=== PATIENT | female | born 1980 | race Hispanic/Latino ===

== ENCOUNTER 2017-01-05 21:28 | Emergency (ER) | payer SELFPAY ==
[~2017-01-05] VITALS: Ht 170.2 cm; Wt 119.0 kg
[~2017-01-05 21:28] MED LIST: AMOXICILLIN500 M2 PO; AMOXICILLIN500 MG PO; AUGMENTIN500TAB PO; CIPROFLOXACN500 MG PO; IRON325 MG PO; NAPROSYN500 MG PO; ULTRAM50 M1 PO; ZOFRAN ODT8 MG PO
[2017-01-05] MEDS ORDERED: NEXIUM5 MG PO (21:37)
[2017-01-05] MEDS ORDERED: TYLENOL PM PO (21:37)
[2017-01-05] MEDS ORDERED: PERCOCET 5/325M1 TAB PO (21:49)
[2017-01-05] MEDS ORDERED: FLEXERIL PO (21:49)
[2017-01-05] MEDS ORDERED: MOTRIN800 MG PO (21:49)
[2017-01-05 22:09] VITALS: BP 136/85
== END 2017-01-05 22:19 | disposition home or self-care (01) | DRG 552 ==
LOC: ED 21:28
DX: M54.5 Low back pain (principal); R53.1 Weakness

== ENCOUNTER 2017-05-16 21:55 | Emergency (ER) | payer OTHER ==
[~2017-05-16] VITALS: Ht 170.2 cm; Wt 119.4 kg
[~2017-05-16 21:55] MED LIST changes: +FLEXERIL PO; +MOTRIN800 MG PO; +NEXIUM5 MG PO; +PERCOCET 5/325M1 TAB PO; +TYLENOL PM PO
[2017-05-16 22:58] LABS: HEMATOCRIT 36.7 % (37.0-47.0); HEMOGLOBIN 10.1 g/dl (12.0-16.0); IMMATURE GRANULOCYTES 0.3 % (0.0-1.0); MEAN CELL VOLUME 77.3 fL CALC (80.0-100.0); MEAN CORPUSCULAR HGB 21.3 pG CALC (26.0-32.0); MEAN CORPUSCULAR HGB CONC 27.5 g/L CALC (32.0-36.0); NEUT# 5.51 thou/uL (2.00-7.15); RED BLOOD COUNT 4.75 mill/uL (4.20-5.60); RED CELL DISTRI WIDTH 16.9 % (11.5-15.5)
[2017-05-16 23:20] LABS: ALBUMIN 4.4 g/dL (3.2-5.0); ALKALINE PHOSPHATASE 114 u/l (38-126); ANION GAP 16 (6-22 (CALC)); BILIRUBIN, TOTAL 0.5 mg/dL (0.0-1.4); BUN 10 mg/dL (7-17); BUN/CREATININE RATIO 14 (12-20 (CALC)); CALCIUM 9.3 mg/dL (8.4-10.2); CARBON DIOXIDE 25 mmol/l (22-30); CHLORIDE 106 mmol/l (95-108); CREATININE 0.7 mg/dL (0.5-1.0); GFR > 60 ML/MIN (>=60 (CALC)); GFR FOR AFR.AMER. > 60 ML/MIN (>=60 (CALC)); GLUCOSE 88 mg/dL (65-105); POTASSIUM 4.2 mmol/l (3.5-5.1); SGOT/AST 27 u/l (14-36); SGPT/ALT 32 u/l (9-52); SODIUM 143 mmol/l (137-146)
[2017-05-16] MEDS ORDERED: NAPROSYN500 MG PO (23:31)
[2017-05-17 00:05] VITALS: BP 152/94
== END 2017-05-17 00:05 | disposition home or self-care (01) | DRG 761 ==
LOC: ED 21:55
PROVIDERS: Emergency Medicine
DX: N94.6 Dysmenorrhea, unspecified (principal); F17.210 Nicotine dependence, cigarettes, uncomplicated; R10.30 Lower abdominal pain, unspecified; N93.9 Abnormal uterine and vaginal bleeding, unspecified

== ENCOUNTER 2017-09-09 07:55 | Emergency (ER) | payer OTHER ==
[~2017-09-09] VITALS: Ht 170.2 cm; Wt 121.4 kg
[2017-09-09 08:50] LABS: HEMATOCRIT 33.1 % (37.0-47.0); HEMOGLOBIN 9.1 g/dl (12.0-16.0); IMMATURE GRANULOCYTES 0.1 % (0.0-1.0); MEAN CELL VOLUME 75.1 fL CALC (80.0-100.0); MEAN CORPUSCULAR HGB 20.6 pG CALC (26.0-32.0); MEAN CORPUSCULAR HGB CONC 27.5 g/L CALC (32.0-36.0); RED BLOOD COUNT 4.41 mill/uL (4.20-5.60); RED CELL DISTRI WIDTH 16.4 % (11.5-15.5)
[2017-09-09 08:54] LABS: URINE BILIRUBIN - DIPSTICK NEGATIVE (NEGATIVE); URINE BLOOD DIPSTICK SMALL (NEGATIVE); URINE COLOR YELLOW; URINE GLUCOSE - DIPSTICK NEGATIVE (NEGATIVE); URINE KETONE NEGATIVE (NEGATIVE); URINE LEUK ESTERASE NEGATIVE (NEGATIVE); URINE NITRITE - DIPSTICK NEGATIVE (Negative); URINE PROTEIN - DIPSTICK NEGATIVE (NEG-TRACE); URINE SPECIFIC GRAVITY 1.025; URINE UROBILINOGEN - DIPSTICK 0.2 E.U./dL (0.2)
[2017-09-09 08:55] LABS: URINE CLARITY CLEAR
[2017-09-09 09:04] LABS: URINE SQUAMOUS EPITHELIAL CELL FEW EPI/hpf (0-FEW)
[2017-09-09 09:05] LABS: URINE RBC 0-2 RBC/hpf (0-5); URINE WBC 0-2 WBC/hpf (0-5)
[2017-09-09 09:08] LABS: ANION GAP 15 (6-22 (CALC)); BUN 9 mg/dL (7-17); BUN/CREATININE RATIO 16 (12-20 (CALC)); CARBON DIOXIDE 27 mmol/l (22-30); CHLORIDE 106 mmol/l (95-108); CREATININE 0.5 mg/dL (0.5-1.0); GFR > 60 ML/MIN (>=60 (CALC)); GFR FOR AFR.AMER. > 60 ML/MIN (>=60 (CALC)); LIPASE 58 u/l (23-300); POTASSIUM 3.9 mmol/l (3.5-5.1); SODIUM 144 mmol/l (137-146)
[2017-09-09] MEDS ORDERED: RANITIDINE 150150 MG PO (11:40)
[2017-09-09 11:56] VITALS: BP 126/70
== END 2017-09-09 12:05 | disposition home or self-care (01) | DRG 392 ==
LOC: ED 07:55
PROVIDERS: Family Medicine
DX: K29.70 Gastritis, unspecified, without bleeding (principal); R10.13 Epigastric pain

== ENCOUNTER 2017-10-02 20:10 | Emergency (ER) | payer OTHER ==
[~2017-10-02] VITALS: Ht 170.2 cm; Wt 118.2 kg
[~2017-10-02 20:10] MED LIST changes: +RANITIDINE 150150 MG PO
[2017-10-02 21:40] VITALS: BP 137/93
== END 2017-10-02 21:40 | disposition home or self-care (01) | DRG 605 ==
LOC: ED 20:10
PROC: 0HQLXZZ Repair Left Lower Leg Skin, External Approach (ICD-10-PCS; principal; 2017-10-02)
DX: S81.012A Laceration without foreign body, left knee, initial encounter (principal); F17.210 Nicotine dependence, cigarettes, uncomplicated; W19.XXXA Unspecified fall, initial encounter; Y92.512 Supermarket, store or market as the place of occurrence of the external cause

== ENCOUNTER 2018-01-07 07:13 | Emergency (ER) | payer OTHER ==
[~2018-01-07] VITALS: Ht 170.2 cm; Wt 105.0 kg
[2018-01-07] MEDS ORDERED: TESSALON PER100 MG PO (07:32)
[2018-01-07] MEDS ORDERED: ZITHROMAX250 MG PO (07:32)
[2018-01-07] MEDS ORDERED: CORTISPORIN OTI10 M2 AU (07:32)
[2018-01-07] MEDS ORDERED: TORADOL PO (07:32)
[2018-01-07 07:36] VITALS: BP 144/68
== END 2018-01-07 07:41 | disposition home or self-care (01) | DRG 203 ==
LOC: ED 07:13
DX: J40 Bronchitis, not specified as acute or chronic (principal); R05 Cough; R09.81 Nasal congestion; H92.03 Otalgia, bilateral; F17.210 Nicotine dependence, cigarettes, uncomplicated

== ENCOUNTER 2018-06-29 19:11 | Emergency (ER) | payer OTHER ==
[~2018-06-29] VITALS: Ht 170.2 cm; Wt 109.0 kg
[~2018-06-29 19:11] MED LIST changes: +CORTISPORIN OTI10 M2 AU; +IBUPROFEN600 MG PO; +TESSALON PER100 MG PO; +TORADOL PO; +VOLTAREN - GENE75 MG PO; +ZITHROMAX250 MG PO
[2018-06-29 21:30] VITALS: BP 128/70
== END 2018-06-29 21:30 | disposition home or self-care (01) ==
LOC: ED 19:11
DX: J02.9 Acute pharyngitis, unspecified (principal); R50.9 Fever, unspecified; R05 Cough; F17.200 Nicotine dependence, unspecified, uncomplicated; J45.909 Unspecified asthma, uncomplicated

== ENCOUNTER 2018-07-01 18:31 | Emergency (ER) | payer OTHER ==
[~2018-07-01] VITALS: Ht 170.2 cm; Wt 110.0 kg
[2018-07-01] MEDS ORDERED: AMOXICILLIN500 MG PO (19:12)
[2018-07-01] MEDS ORDERED: PERCOCET 5/325M1 TAB PO (19:12)
[2018-07-01] MEDS ORDERED: CORTISPORIN OTI10 ML AD (19:12)
[2018-07-01 19:15] VITALS: BP 167/88
== END 2018-07-01 19:23 | disposition home or self-care (01) ==
LOC: ED 18:31
DX: H66.93 Otitis media, unspecified, bilateral (principal); H60.93 Unspecified otitis externa, bilateral; H92.03 Otalgia, bilateral; J06.9 Acute upper respiratory infection, unspecified; F17.210 Nicotine dependence, cigarettes, uncomplicated

== ENCOUNTER 2018-08-22 07:18 | Emergency (ER) | payer OTHER ==
[~2018-08-22] VITALS: Ht 170.2 cm; Wt 105.0 kg
[~2018-08-22 07:18] MED LIST changes: +CORTISPORIN OTI10 ML AD
[2018-08-22] MEDS ORDERED: [UNRECOGNIZED DRUG - OTHER] NAB (07:40)
[2018-08-22] MEDS ORDERED: OMEPRAZOLE20 MG PO (07:40)
[2018-08-22] MEDS ORDERED: FLONASE AL50 MCG/ACT NAB (08:15)
[2018-08-22] MEDS ORDERED: IPRATROPIUM BR0.03 % NAB (08:15)
[2018-08-22] MEDS ORDERED: DOXYCYC MONO100 M1 PO (08:34)
[2018-08-22 08:49] VITALS: BP 112/64
== END 2018-08-22 09:12 | disposition home or self-care (01) ==
LOC: ED 07:18
DX: J06.9 Acute upper respiratory infection, unspecified (principal); J45.909 Unspecified asthma, uncomplicated; R05 Cough; J02.9 Acute pharyngitis, unspecified; R09.89 Other specified symptoms and signs involving the circulatory and respiratory systems; H92.01 Otalgia, right ear

== ENCOUNTER 2018-09-06 18:21 | Emergency (ER) | payer OTHER ==
[~2018-09-06] VITALS: Ht 170.2 cm; Wt 130.8 kg
[~2018-09-06 18:21] MED LIST changes: +DOXYCYC MONO100 M1 PO; +FLONASE AL50 MCG/ACT NAB; +IPRATROPIUM BR0.03 % NAB; +OMEPRAZOLE20 MG PO; +[UNRECOGNIZED DRUG - OTHER] NAB
[2018-09-06] MEDS ORDERED: MEDDOSEPAK PO (20:31)
[2018-09-06] MEDS ORDERED: ROBITUSSIN AC10 ML PO (20:31)
[2018-09-06 20:52] VITALS: BP 107/73
== END 2018-09-06 20:52 | disposition home or self-care (01) ==
LOC: ED 18:21
DX: J06.9 Acute upper respiratory infection, unspecified (principal); J45.909 Unspecified asthma, uncomplicated; R05 Cough

== ENCOUNTER 2019-07-24 07:00 | Emergency (ER) | payer OTHER ==
[~2019-07-24 07:00] MED LIST changes: +MEDDOSEPAK PO; +ROBITUSSIN AC10 ML PO
[2019-07-24] MEDS ORDERED: DOXYCYC MONO100 M2 PO (07:41)
[2019-07-24] MEDS ORDERED: CHERATUSSIN PO (07:41)
[2019-07-24] MEDS ORDERED: PROAIR HFA108 MCG/AC PO (07:42)
[2019-07-24 08:15] VITALS: BP 161/81
[2020-03-25] MEDS ORDERED: GABAPENTIN400 M2 PO (15:01)
[2020-03-25] MEDS ORDERED: METHOCARBAMOL500 MG PO (15:02)
[2020-03-25] MEDS ORDERED: PROTONIX40 M2 PO (15:02)
[2020-03-25] MEDS ORDERED: HYDROCODONE/ACE1 TAB PO ×2 (15:54→15:55)
[2020-03-25] MEDS ORDERED: PHENTERMINE37.5 MG PO (16:07)
== END 2019-07-24 08:15 | disposition home or self-care (01) ==
LOC: ED 07:00
DX: J06.9 Acute upper respiratory infection, unspecified (principal)

== ENCOUNTER 2020-05-05 04:41 | Observation (INO) | payer OTHER ==
[~2020-05-05] VITALS: Ht 152.4 cm; Wt 113.0 kg
[2020-05-05] VITALS (10 sets, daily range): BP systolic 97–148; BP diastolic 44–84
[~2020-05-05 04:41] MED LIST changes: +CHERATUSSIN PO; +DOXYCYC MONO100 M2 PO; +GABAPENTIN400 M2 PO; +HYDROCODONE/ACE1 TAB PO; +METHOCARBAMOL500 MG PO; +PHENTERMINE37.5 MG PO; +PROAIR HFA108 MCG/AC PO; +PROTONIX40 M2 PO
--- NOTE | 2020-05-05 04:51 | NUR ---
AMBULATED TO ROOM
[2020-05-05 05:25] LABS: IMMATURE GRANULOCYTES 0.3 % (0.0-5.0); MEAN CORPUSCULAR HGB CONC 23.1 g/dL CAL (32.0-36.0); NEUT# 5.76 thou/uL (2.00-7.15); RED BLOOD COUNT 3.67 mill/uL (4.20-5.60); RED CELL DISTRI WIDTH 19.9 % (11.5-15.5)
[2020-05-05 05:38] LABS: HEMATOCRIT 23.8 % (37.0-47.0); HEMOGLOBIN 5.5 g/dl (12.0-16.0); MEAN CELL VOLUME 64.9 fL CALC (80.0-100.0)
[2020-05-05 05:50] LABS: ALBUMIN 3.8 g/dL (3.2-5.0); ALKALINE PHOSPHATASE 79 u/l (38-126); ANION GAP 11 (6-22 (CALC)); BILIRUBIN, TOTAL 0.3 mg/dL (0.0-1.4); BUN 12 mg/dL (7-17); BUN/CREATININE RATIO 15 (12-20 (CALC)); CARBON DIOXIDE 26 mmol/l (22-30); CHLORIDE 104 mmol/l (95-108); CREATININE 0.8 mg/dL (0.5-1.0); GFR > 60 ML/MIN (>=60 (CALC)); GFR FOR AFR.AMER. > 60 ML/MIN (>=60 (CALC)); LIPASE 54 u/l (23-300); POTASSIUM 3.3 mmol/l (3.5-5.1); SGOT/AST 23 u/l (14-36); SODIUM 137 mmol/l (137-146)
--- NOTE | 2020-05-05 06:00 | NUR ---
PT RESTING. LAB HERE FOR COLLECTION OF TYPE AND CROSS. PT FEELS MUCH BETTER. VSS.
[2020-05-05 06:02] LABS: MYOGLOBIN 24 ng/mL (0 - 62)
--- NOTE | 2020-05-05 06:30 | NUR ---
PT RESTING. AWARE OF BLOOD TRANSFUSIONS AND ADMISSION. CONSENT SIGNED FOR TRANSFUSIONS. VSS. FEELS MUCH BETTER.
[2020-05-05] MEDS ORDERED: FLONASE AL50 MCG/ACT (06:43)
--- NOTE | 2020-05-05 07:10 | NUR ---
PT UPDATED ON BLOOD ADMIN PROCEDURE. VSS. SKIN PD. PT STATES "MY CHESET PAIN IS GONE IT WAS MY REFLUX". INITIATED PRBC ORDERED. PT TOLERATING WELL.
--- NOTE | 2020-05-05 07:30 | NUR ---
CALLED DALE JOINER APRN AND INFORMED OF ASYMPTOMATIC HYPOTENSION. VERBAL ORDER FOR 1L NS FLUID BOLUS. INITIATED IVF BOLUS
--- NOTE | 2020-05-05 08:09 | NUR ---
GAVE REPORT TO MARVIN GRAY ON MED SURG.
--- NOTE | 2020-05-05 08:20 | NUR ---
PT TRANSPORTED TO [facility] VIA STRETCEHR ON TELE IN NO DISTRESS WITH PRBC INFUSING WITHOUT DIFFICULTY. VSS. PT AMBULATED TO THE BATHROOM ON ADMIT TO MS ROOM WITHOUT DIFFICULTY.
--- NOTE | 2020-05-05 08:29 | NUR ---
RECEIVED PATIENT FROM ER VIA STRETCHER, ORIENTED TO ROOM, CALL LIGHT SYSTEM, AND FALL PRECAUTIONS. FIRST UNIT OF PRBC CURRENTLY INFUSING. GABRIELLEN VERBALIZES UNDERSTANDING OF ADVERSE REACTIONS AND WHEN TO CALL FOR NURSE. PATIENT IS ON TELE AND VERBALIZES UNDERSTANDING OF TELE MONITORING. PATIENT ADVISED TO CALL FOR HELP NEEDED.
--- NOTE | 2020-05-05 10:21 | NUR ---
1ST UNIT OF PRBC'S COMPLETED AT THIS TIME.VS OBTAINED AND WNL;PT TOLERATED WELL;RESPIRATIONS EVEN AND UNLABORED ON RA;PT DENIES ANY CURRENT PAIN OR DISCOMFORTS;TELE MONITORING IN PLACE;PT ENCOURAGED TO CALL FOR ASSISTANCE IF NEEDED;FALL PRECAUTIONS IN PLACE WITH BED IN THE LOWEST POSITION AND CALL LIGHT IN REACH;WILL CONTINUE TO MONITOR
[2020-05-05 10:42] LABS: URINE BILIRUBIN - DIPSTICK NEGATIVE (NEGATIVE); URINE BLOOD DIPSTICK NEGATIVE (NEGATIVE); URINE COLOR YELLOW; URINE GLUCOSE - DIPSTICK NEGATIVE (NEGATIVE); URINE KETONE NEGATIVE (NEGATIVE); URINE LEUK ESTERASE NEGATIVE (NEGATIVE); URINE NITRITE - DIPSTICK NEGATIVE (Negative); URINE PROTEIN - DIPSTICK NEGATIVE (NEG-TRACE); URINE UROBILINOGEN - DIPSTICK 0.2 E.U./dL (0.2)
--- NOTE | 2020-05-05 10:46 | NUR ---
PT RESTING IN SEMI FOWLERS POSITION;SECOND UNIT OF PRBC'S INITIATED AT THIS TIME WITH VERIFICATION FROM BAN AND ISAAC WONG;PT EDUCATED IN ALL S/S OF BLOOD TRANSFUSION REACTION AND VERBALIZES UNDERSTANDING;CUSTOMER RELATIONS COORDINATOR TO REMAIN AT BEDSIDE FOR INITIAL 15 MINS PER DM PROTCAL;PT DENIES ANY ADDITIONAL NEEDS;CALL LIGHT IN REACH;WILL CONTINUE TO MONITOR
--- NOTE | 2020-05-05 11:01 | NUR ---
PT TOLERATING 2ND UNIT OF PRBC'S WELL, VS REMAIN WNL;PT DENIES ANY S/S OF BLOOD TRANSFUSION REACTION;RESPIRATIONS EVEN AND UNLABORED ON RA;PT ENCOURAGED TO CALL FOR ASSISTANCE IF NEEDED;CALL LIGHT IN REACH;WILL CONTINUE TO MONITOR
--- NOTE | 2020-05-05 11:52 | NUR ---
WERNER ANRP AT BEDSIDE
--- NOTE | 2020-05-05 12:20 | NUR ---
PT RESTING IN SEMI FOWLERS POSITION;RESPIRATIONS EVEN AND UNLABORED ON RA;PT DENIES ANY CURRENT PAIN OR DISCOMFORTS;TELE MONITORING IN PLACE;2ND UNIT OF PRBC'S CONTINUE TO INFUSE WITH EASE;POTASSIUM 20MEQ IV STARTED AT THIS TIME TO RAC PER ORDER;PT DENIES ANY ADDITIONAL NEEDS AT THIS TIME;ENCOURAGED TO CALL FOR ASSISTANCE IF NEEDED;CALL LIGHT IN REACH;WILL CONTINUE TO MONITOR
--- NOTE | 2020-05-05 14:15 | NUR ---
2ND UNIT OF PRBC'S COMPLETED;PT TOLERATED TRANSFUSION WELL;RESPIRATIONS EVEN AND UNLABORED ON RA;PT DENIES ANY CURRENT PAIN OR DISCOMFORTS;TELE MONITORING IN PLACE;CALL LIGHT IN REACH;WILL CONTINUE TO MONITOR
[2020-05-05 18:02] LABS: HEMATOCRIT 28.4 % (37.0-47.0); HEMOGLOBIN 7.5 g/dl (12.0-16.0)
--- NOTE | 2020-05-05 23:44 | NUR ---
PT RESTING COMFORTABLY IN ROOM. PT REQUESTED THAT IV IN RIGHT AC BE DISCONTINUED FOR C/O PAIN AT IV SITE. NO REDNESS OR SWELLING NOTED. IV REMOVED. IV CANNULA INTACT. PT DENIES ANY NEW CONCERNS. CORPORATE RECRUITER WILL CONTINUE TO MONITOR
[2020-05-06] VITALS: BP 126/50
[2020-05-06 03:39] VITALS: BP 139/76
[2020-05-06 05:19] LABS: HEMOGLOBIN 7.1 g/dl (12.0-16.0); MEAN CORPUSCULAR HGB 17.4 pG CALC (26.0-32.0); MEAN CORPUSCULAR HGB CONC 25.4 g/dL CAL (32.0-36.0); RED BLOOD COUNT 4.07 mill/uL (4.20-5.60)
[2020-05-06 05:20] LABS: MEAN CELL VOLUME 68.8 fL CALC (80.0-100.0)
[2020-05-06 05:44] LABS: ALBUMIN 3.3 g/dL (3.2-5.0); ALKALINE PHOSPHATASE 58 u/l (38-126); BUN 5 mg/dL (7-17); BUN/CREATININE RATIO 11 (12-20 (CALC)); CARBON DIOXIDE 23 mmol/l (22-30); CHLORIDE 108 mmol/l (95-108); CREATININE 0.5 mg/dL (0.5-1.0); GFR > 60 ML/MIN (>=60 (CALC)); GFR FOR AFR.AMER. > 60 ML/MIN (>=60 (CALC)); SGOT/AST 26 u/l (14-36); SODIUM 135 mmol/l (137-146); TOTAL PROTEIN 6.1 g/dL (6.3-8.2)
[2020-05-06 05:46] LABS: ANION GAP 8 (6-22 (CALC)); BILIRUBIN, TOTAL 0.6 mg/dL (0.0-1.4); POTASSIUM 4.1 mmol/l (3.5-5.1)
--- NOTE | 2020-05-06 07:15 | NUR ---
REPORT RECEIVED FROM ISAAC DAVILA;PT RESTING IN SEMI FOWLERS POSITION;INTRODUCED SELF TO PT AND POC DISCUSSED;RESPIRATIONS EVEN AND UNLABORED ON RA;PT DENIES ANY CURRENT PAIN OR DISCOMFORTS;TELE MONITORING IN PLACE;PT ENCOURAGED TO CALL FOR ASSISTANCE IF NEEDED;FALL PRECAUTIONS IN PLACE WITH BED IN THE LOWEST POSITION AND CALL LIGHT IN REACH;WILL CONTINUE TO MONITOR
[2020-05-06 07:28] VITALS: BP 135/70
--- NOTE | 2020-05-06 07:30 | NUR ---
PT RESTING IN SEMI FOWLERS POSITION,A&O X3;VS OBTAINED AND ASSESSMENT COMPLETED;PT DENIES ANY CURRENT PAIN OR DISCOMFORTS,PAIN SCALE AND REPORTING EDUCATED;RESPIRATIONS EVEN AND UNLABORED ON RA,CLEAR LUNG SOUNDS;ABDOMEN SOFT ON PALPATION AND ACTIVE IN ALL 4 QUADRANTS;STRONG PEDAL PULSES;SKIN INTACT;TELE MONITORING IN PLACE;#20G TO LAC FLUSHED AND PATENT,SITE APPEARS HEALTHY;PT DENIES ANY ADDITIONAL NEEDS AT THIS TIME AND IS ENCOURAGED TO CALL FOR ASSISTANCE IF NEEDED;FALL PRECAUTIONS REMAIN IN PLACE WITH BED IN THE LOWEST POSITION AND CALL LIGHT IN REACH;WILL CONTINUE TO MONITOR
--- NOTE | 2020-05-06 08:31 | NUR ---
AT BEDSIDE DISCUSSING POC WITH PT.
[2020-05-06] MEDS ORDERED: FERR SULFATE325 MG PO (09:33)
[2020-05-06] MEDS ORDERED: PROTONIX40 M2 PO (09:33)
--- NOTE | 2020-05-06 10:35 | NUR ---
PATIENT D/C AT THIS TIME. PATIENT GIVEN D/C INSTRUCTIONS AND PAPER PRESCRIPTION FOR PROTONIX 4OMG TO BE TAKEN DAILY. PATIENT VERBALIZES UNDERSTANDING OF D/C INSTRUCTIONS. PATIENT WAS ALSO GIVEN A RETURN TO WORK EXCUSE (RETURN DATE 05/09/2020). PATIENT IV REMOVED AT THIS TIME, IV CATH INTACT NO IV SITE INFECTION SIGNS NOTED. PATIENT WAS TAKEN OFF FLOOR VIA WHEELCHAIR BY THIS STORE PROMOTER.
--- NOTE | 2020-05-06 10:48 | NUR ---
Discharge instructions given. Patient verbalizes understanding of same. Discharged in stable condition via Wheelchair to Home with family. All belongings sent with pt. PT TRANSPORTED TO [facility] IN STABLE CONDITION IA WHEELCHAIR ACCOMPANIED BY ISAAC WONG;FAMILY TO TRANSPORT PT HOME.
== END 2020-05-06 10:47 | disposition home or self-care (01) ==
LOC: ED 04:41 → ED-I 05:01 → ED 05:01 → ED-I 06:31 → ED 07:07 → MS2 07:08
PROVIDERS: Emergency Medicine; Nurse Practitioner Family; ADMIT Internal Medicine; ATTEND Internal Medicine
DX: K21.9 Gastro-esophageal reflux disease without esophagitis (principal); D50.0 Iron deficiency anemia secondary to blood loss (chronic); N92.0 Excessive and frequent menstruation with regular cycle; J45.909 Unspecified asthma, uncomplicated
CPT/HCPCS: G0378; P9016; S0164

== ENCOUNTER 2021-02-11 13:06 | Emergency (ER) | payer OTHER ==
[~2021-02-11] VITALS: Ht 167.6 cm; Wt 112.7 kg
[~2021-02-11 13:06] MED LIST changes: +FERR SULFATE325 MG PO; +FLONASE AL50 MCG/ACT
[2021-02-11 13:54] LABS: URINE BILIRUBIN - DIPSTICK NEGATIVE (NEGATIVE); URINE BLOOD DIPSTICK NEGATIVE (NEGATIVE); URINE COLOR YELLOW; URINE GLUCOSE - DIPSTICK NEGATIVE (NEGATIVE); URINE KETONE NEGATIVE (NEGATIVE); URINE LEUK ESTERASE NEGATIVE (NEGATIVE); URINE NITRITE - DIPSTICK NEGATIVE (Negative); URINE PH 7.5 (4.5-8.0); URINE PROTEIN - DIPSTICK NEGATIVE (NEG-TRACE); URINE UROBILINOGEN - DIPSTICK 0.2 E.U./dL (0.2)
[2021-02-11] MEDS ORDERED: NAPROXEN500 MG PO (14:49)
[2021-02-11] MEDS ORDERED: CYCLOBENZAPRINE10 MG PO (14:49)
[2021-02-11 14:58] VITALS: BP 128/66
== END 2021-02-11 15:04 | disposition home or self-care (01) ==
LOC: ED 13:06
PROVIDERS: Emergency Medicine
DX: M47.816 Spondylosis without myelopathy or radiculopathy, lumbar region (principal); M79.606 Pain in leg, unspecified; G89.29 Other chronic pain

== ENCOUNTER 2022-06-01 05:30 | Emergency (ER) | payer OTHER ==
[~2022-06-01] VITALS: Ht 167.6 cm; Wt 109.0 kg
[~2022-06-01 05:30] MED LIST changes: +CYCLOBENZAPRINE10 MG PO; +NAPROXEN500 MG PO
[2022-06-01 06:10] LABS: HEMATOCRIT 23.8 % (37.0-47.0); IMMATURE GRANULOCYTES 0.1 % (0.0-5.0); MEAN CORPUSCULAR HGB 16.1 pG CALC (26.0-32.0); MEAN CORPUSCULAR HGB CONC 23.9 g/dL CAL (32.0-36.0); NEUT# 4.04 thou/uL (2.00-7.15); RED BLOOD COUNT 3.55 mill/uL (4.20-5.60); RED CELL DISTRI WIDTH 18.7 % (11.5-15.5)
[2022-06-01 06:11] VITALS: BP 96/49
[2022-06-01 06:14] LABS: HEMOGLOBIN 5.7 g/dl (12.0-16.0)
[2022-06-01 06:26] LABS: ALBUMIN 3.7 g/dL (3.2-5.0); BUN 15 mg/dL (7-17); BUN/CREATININE RATIO 21 (12-20 (CALC)); CHLORIDE 107 mmol/l (95-108); CREATININE 0.7 mg/dL (0.5-1.0); GFR FOR AFR.AMER. > 60 ML/MIN (>=60 (CALC)); GFR OTHER RACES > 60 ML/MIN (>=60 (CALC)); POTASSIUM 3.3 mmol/l (3.5-5.1); SGOT/AST 33 u/l (14-36); SODIUM 140 mmol/l (137-146); TOTAL PROTEIN 6.9 g/dL (6.3-8.2)
[2022-06-01 06:31] VITALS: BP 92/41
[2022-06-01 06:39] LABS: ALKALINE PHOSPHATASE 97 u/l (38-126); ANION GAP 8 (6-22 (CALC)); BILIRUBIN, TOTAL 0.2 mg/dL (0.0-1.4); CARBON DIOXIDE 28 mmol/l (22-30)
[2022-06-01] MEDS ORDERED: LORTAB 1010 MG PO ×2 (06:47→11:26)
[2022-06-01] MEDS ORDERED: MEDDOSEPAK PO (06:47)
[2022-06-01 07:00] VITALS: BP 100/45
== END 2022-06-01 07:20 | disposition left against medical advice (07) ==
LOC: ED 05:30
PROVIDERS: Emergency Medicine
DX: M79.641 Pain in right hand (principal); M25.531 Pain in right wrist; D64.9 Anemia, unspecified; J45.909 Unspecified asthma, uncomplicated; F41.9 Anxiety disorder, unspecified; Z53.29 Procedure and treatment not carried out because of patient's decision for other reasons

== ENCOUNTER 2022-06-13 21:42 | Emergency (ER) | payer OTHER ==
[~2022-06-13] VITALS: Ht 180.3 cm; Wt 108.0 kg
[~2022-06-13 21:42] MED LIST changes: +LORTAB 1010 MG PO
[2022-06-13 21:52] VITALS: BP 117/49
[2022-06-13 22:01] VITALS: BP 47/26
[2022-06-13] MEDS ORDERED: PERCOCET 10/31 COMBO PO (22:01)
[2022-06-13 22:13] VITALS: BP 109/55
[2022-06-13 22:20] VITALS: BP 109/55
== END 2022-06-13 22:00 | disposition home or self-care (01) ==
LOC: ED 21:42
DX: M25.531 Pain in right wrist (principal); M79.641 Pain in right hand; J45.909 Unspecified asthma, uncomplicated; F41.9 Anxiety disorder, unspecified; F17.200 Nicotine dependence, unspecified, uncomplicated

== ENCOUNTER 2023-01-22 18:22 | Emergency (ER) | payer OTHER ==
[~2023-01-22] VITALS: Ht 180.3 cm; Wt 108.0 kg
[~2023-01-22 18:22] MED LIST changes: +PERCOCET 10/31 COMBO PO
[2023-01-22 19:39] LABS: BASO% 0.7 % (0-3); EOS% 6.2 % (0-8); HEMATOCRIT 23.3 % (37.0-47.0); IMMATURE GRANULOCYTES 0.4 % (0.0-5.0); LYMPH% 31.6 % (15-41); MEAN CELL VOLUME 66.6 fL CALC (80.0-100.0); MEAN CORPUSCULAR HGB 15.7 pG CALC (26.0-32.0); MEAN CORPUSCULAR HGB CONC 23.6 g/dL CAL (32.0-36.0); MONO% 7.6 % (2-13); NEUT# 4.41 thou/uL (2.00-7.15); NEUT% 53.5 % (42-76); RED BLOOD COUNT 3.5 mill/uL (4.20-5.60); RED CELL DISTRI WIDTH 19.1 % (11.5-15.5)
[2023-01-22 19:46] LABS: HEMOGLOBIN 5.5 g/dl (12.0-16.0)
[2023-01-22 19:51] LABS: ALBUMIN 3.5 g/dL (3.2-5.0); ALKALINE PHOSPHATASE 81 u/l (38-126); ANION GAP 9 (6-22 (CALC)); BILIRUBIN, TOTAL 0.4 mg/dL (0.02-1.3); BUN 11 mg/dL (7-17); BUN/CREATININE RATIO 17 (12-20 (CALC)); CARBON DIOXIDE 25 mmol/l (22-30); CHLORIDE 106 mmol/l (95-108); CREATININE 0.6 mg/dL (0.5-1.0); GFR FOR AFR.AMER. > 60 ML/MIN (>=60 (CALC)); GFR OTHER RACES > 60 ML/MIN (>=60 (CALC)); POTASSIUM 3.7 mmol/l (3.5-5.1); SGOT/AST 26 u/l (14-36); SODIUM 136 mmol/l (137-146); TOTAL PROTEIN 6.7 g/dL (6.3-8.2)
[2023-01-22] MEDS ORDERED: ROBITUSSIN AC10 ML PO (20:51)
[2023-01-22] MEDS ORDERED: ZPAK PO (20:51)
[2023-01-22 21:00] VITALS: BP 149/76
== END 2023-01-22 21:01 | disposition home or self-care (01) ==
LOC: ED 18:22
PROVIDERS: Nurse Practitioner Family
DX: J06.9 Acute upper respiratory infection, unspecified (principal); D64.9 Anemia, unspecified; J45.909 Unspecified asthma, uncomplicated; Z53.20 Procedure and treatment not carried out because of patient's decision for unspecified reasons; Z87.891 Personal history of nicotine dependence; Z20.822 Contact with and (suspected) exposure to COVID-19

== ENCOUNTER 2023-05-23 17:12 | Emergency (ER) | payer OTHER ==
[~2023-05-23] VITALS: Ht 167.6 cm; Wt 114.3 kg
[~2023-05-23 17:12] MED LIST changes: +ZPAK PO
[2023-05-23 17:30] VITALS: BP 125/63
[2023-05-23 18:01] VITALS: BP 131/69
[2023-05-23 18:16] VITALS: BP 119/62
[2023-05-23 18:20] LABS: URINE BILIRUBIN - DIPSTICK Negative (NEGATIVE); URINE BLOOD DIPSTICK Negative (NEGATIVE); URINE GLUCOSE - DIPSTICK Negative (NEGATIVE); URINE KETONE Negative (NEGATIVE); URINE LEUK ESTERASE Negative (NEGATIVE); URINE NITRITE - DIPSTICK Negative (Negative); URINE PROTEIN - DIPSTICK Negative (NEG-TRACE); URINE SPECIFIC GRAVITY 1.015; URINE UROBILINOGEN - DIPSTICK 0.2 E.U./dL (0.2)
[2023-05-23 18:21] LABS: URINE COLOR Yellow
[2023-05-23] MEDS ORDERED: TRAMADOL HYDROC50 M1 PO (18:30)
[2023-05-23 18:31] VITALS: BP 122/52
[2023-05-23] MEDS ORDERED: ZOFRAN4 MG/TAB PO (18:31)
[2023-05-23 18:46] VITALS: BP 128/71
[2023-05-23 18:57] VITALS: BP 128/71
== END 2023-05-23 18:57 | disposition home or self-care (01) ==
LOC: ED 17:12
PROVIDERS: Family Medicine
DX: R10.9 Unspecified abdominal pain (principal); J45.909 Unspecified asthma, uncomplicated; F41.9 Anxiety disorder, unspecified

== ENCOUNTER 2024-04-02 08:17 | Emergency (ER) | payer SELFPAY ==
[2024-04-02] VITALS (8 sets, daily range): BP systolic 144–155; BP diastolic 58–100
[~2024-04-02] VITALS: Ht 167.6 cm; Wt 99.7 kg
[~2024-04-02 08:17] MED LIST changes: +TRAMADOL HYDROC50 M1 PO; +ZOFRAN4 MG/TAB PO
[2024-04-02] MEDS ORDERED: ZPAK PO (09:10)
== END 2024-04-02 09:30 | disposition home or self-care (01) | DRG 153 ==
LOC: ED 08:17
DX: J06.9 Acute upper respiratory infection, unspecified (principal); J45.909 Unspecified asthma, uncomplicated; F41.9 Anxiety disorder, unspecified; Z20.822 Contact with and (suspected) exposure to COVID-19

== ENCOUNTER 2024-08-27 06:27 | Emergency (ER) | payer SELFPAY ==
[~2024-08-27] VITALS: Ht 167.6 cm; Wt 111.0 kg
[2024-08-27 06:32] VITALS: BP 147/76
[2024-08-27] MEDS ORDERED: KETOROLAC TROMETHAMINE 30 MG/ML SDV IM ONE (06:45)
[2024-08-27] MEDS ORDERED: FLONASE AL50 MCG/ACT (07:35)
[2024-08-27] MEDS ORDERED: BENZONATATE200 MG PO (07:35)
[2024-08-27] MEDS ORDERED: MEDDOSEPAK PO (07:35)
[2024-08-27] MEDS ORDERED: AZELASTINE HCL0.1 % (07:35)
[2024-08-27 07:36] VITALS: BP 147/76
== END 2024-08-27 07:52 | disposition home or self-care (01) | DRG 866 ==
LOC: ED 06:27
DX: B34.9 Viral infection, unspecified (principal); J45.909 Unspecified asthma, uncomplicated; F41.9 Anxiety disorder, unspecified; G62.9 Polyneuropathy, unspecified; Z20.822 Contact with and (suspected) exposure to COVID-19